=== PATIENT | female | born 1970 ===

== ENCOUNTER 2017-10-14 16:54 | Emergency (ER) | payer BC ==
--- NOTE | 2017-10-14 17:03 | ED PDOC ---
Arrival/HPI - General Time Seen by Provider: 10/14/17 17:00 Historian: Patient - History of Present Illness Narrative History of Present Illness (Text): 10/14/17 17:03 47 y/o female, no significant pmh, nkda, c/o burning urinary sensation with frequency x 1 week. Pt. stated that this feels like her usual UTI, no fever or chills, no pelvic or abdominal pain, no palpitation, no night sweat, no other medical or psychological complaints. Past Medical History - Provider Review Nursing Documentation Reviewed: Yes Family/Social History - Physician Review Nursing Documentation Reviewed: Yes Family/Social History: Unknown Family HX Allergies/Home Meds Allergies/Adverse Reactions: Allergies No Known Allergies Allergy (Verified 10/14/17 17:13) Review of Systems - Review of Systems Constitutional: absent: Fatigue, Fevers Eyes: absent: Vision Changes ENT: absent: Hearing Changes Respiratory: absent: SOB, Cough Cardiovascular: absent: Chest Pain Gastrointestinal: absent: Abdominal Pain, Nausea, Vomiting Genitourinary Female: Dysuria, Frequency. absent: Hematuria, Urine Output Changes, Vaginal Bleeding, Vaginal Discharge Skin: absent: Rash, Pruritis Neurological: absent: Headache Psychiatric: absent: Anxiety, Depression Physical Exam Vital Signs Reviewed: Yes Vital Signs Temp Pulse Resp BP Pulse Ox 10/14/17 17:20 98.2 F 79 18 132/71 99 Temperature: Afebrile Blood Pressure: Normal Pulse: Regular Respiratory Rate: Normal Appearance: Positive for: Well-Appearing, Non-Toxic, Comfortable Pain Distress: None Mental Status: Positive for: Alert and Oriented X 3 - Systems Exam Head: Present: Atraumatic, Normocephalic Pupils: Present: PERRL Extroacular Muscles: Present: EOMI Conjunctiva: Present: Normal Mouth: Present: Moist Mucous Membranes Neck: Present: Normal Range of Motion Respiratory/Chest: Present: Clear to Auscultation, Good Air Exchange. No: Respiratory Distress, Accessory Muscle Use Cardiovascular: Present: Regular Rate and Rhythm, Normal S1, S2. No: Murmurs Abdomen: No: Tenderness, Distention, Peritoneal Signs Back: Present: Normal Inspection Upper Extremity: Present: Normal Inspection. No: Cyanosis, Edema Lower Extremity: Present: Normal Inspection. No: Edema Neurological: Present: GCS=15, CN II-XII Intact, Speech Normal Skin: Present: Warm, Dry, Normal Color. No: Rashes Psychiatric: Present: Alert, Oriented x 3, Normal Insight, Normal Concentration Medical Decision Making ED Course and Treatment: 10/14/17 17:16 -urine hcg -UA -Observe and reassess 10/14/17 19:58 -Urine hcg is negative -UA show few bacteria and stated that this feels like a UTI she had before. -Pt. also concerning for gonorrhea/chlamydia and wants prophylatic treatment, rocephine and azithromycin ordered. Urine culture and gc/chlamydia ordered. -Discharge home with macrobid, pyridium, stay hydrated, follow up with your own pmd and obgyn/urologist within 2 days, return to the ER for any new or worsening signs or symptoms. - Lab Interpretations Lab Results: Lab Results 10/14/17 18:05: Urine Color Light yellow, Urine Appearance Clear, Urine pH 8.5, Ur Specific Webster 1.015, Urine Protein Trace H, Urine Glucose (UA) Negative, Urine Ketones Negative, Urine Blood Trace-intact H, Urine Nitrate Negative, Urine Bilirubin Negative, Urine Urobilinogen 1.0 H, Ur Leukocyte Esterase Negative, Urine RBC 0 - 2, Urine WBC 0 - 2, Ur Epithelial Cells 3 - 4, Urine Bacteria Few 10/14/17 17:38: Urine HCG, Qual Negative - PA / [employer] OPERATOR / Resident Statement /DO has reviewed & agrees with the documentation as recorded. Disposition/Present on Arrival - Present on Arrival Any Indicators Present on Arrival: No History of DVT/PE: No History of Uncontrolled Diabetes: No Urinary Catheter: No History of Decub. Ulcer: No - Disposition Have Diagnosis and Disposition been Completed?: Yes Diagnosis: Dysuria Disposition: HOME/ ROUTINE Disposition Time: 17:17 Patient Plan: Discharge Patient Problems: Current Active Problems Problem Status Onset UTI (urinary tract infection) Acute Condition: GOOD Additional Instructions: -Discharge home with macrobid, pyridium, stay hydrated, follow up with your own pmd and obgyn/urologist within 2 days, return to the ER for any new or worsening signs or symptoms. Prescriptions: Nitrofurantoin Macrocrystals [Macrobid] 100 mg PO BID #14 cap Phenazopyridine [Phenazopyridine HCl] 200 mg PO TID #6 tab Referrals: PCP,NO [Primary Care Provider] - Follow up with primary Blayne Turner MD [Staff Provider] - Follow up with primary Karley Dennison MD [Medical Doctor] - Follow up with primary Forms: WORK NOTE
[2017-10-14 17:14] VITALS: BMI 36.0
[2017-10-14 17:20] VITALS: RESP 18; O2SAT 99
[2017-10-14 18:23] LABS: PH,URINE 8.5 (4.7-8.0); URINE BILIRUBIN NEGATIVE (NEGATIVE); URINE BLOOD TRACE-INTACT (NEGATIVE); URINE GLUCOSE (UA) NEGATIVE (NEGATIVE); URINE LEUKOCYTE ESTERASE NEGATIVE Leu/uL (NEGATIVE); URINE PROTEIN TRACE mg/dL (<30 mg/dL)
[2017-10-14 18:25] LABS: URINE APPEARANCE CLEAR (CLEAR); URINE COLOR LIGHT YELLOW (YELLOW)
[2017-10-14 18:27] LABS: URINE BACTERIA FEW (NEG); URINE RBC 0 - 2 /hpf (0-2); URINE WBC 0 - 2 /hpf (0-6)
[2017-10-14] MEDS ORDERED: cefTRIAXone (Rocephin) 250 mg Inj IM STA (19:56)
[2017-10-14 20:22] VITALS: BP 130/76; PULSE 80; TEMP 98.1
== END 2017-10-14 20:21 | disposition home or self-care (01) ==
LOC: ED 16:54
DX: R30.0 Dysuria (principal)
CPT/HCPCS: 81001; 84703; 87086; 87491; 87591; 96372; 99283; J0696

== ENCOUNTER 2018-07-27 14:41 | Emergency (ER) | payer BC, OTHER ==
[2018-07-27 14:41] VITALS: BMI 36.0
[2018-07-27 15:05] VITALS: TEMP 98.1; O2SAT 98
--- NOTE | 2018-07-27 15:24 | ED PDOC ---
Arrival/HPI - General Chief Complaint: High Blood Pressure Time Seen by Provider: 07/27/18 14:45 Historian: Patient - History of Present Illness Narrative History of Present Illness (Text): 07/27/18 15:24 48 year old female, whose past medical history includes chronic migraines, presents to the emergency department complaining of lightheadedness, headache, and shortness of breath for the past 2 days. Patient states she has been intermittently feeling these symptoms and went to [facility] to get her blood pressure check, which she found to be 167/111. She denies fevers, chills, chest pain, dyspnea on exertion, cough, abdominal pain, nausea, vomiting, diarrhea, back pain, neck pain, or any other complaint. Time/Duration: < week Symptom Onset: Gradual Symptom Course: Intermittent Activities at Onset: Light Context: Home Past Medical History - Provider Review Nursing Documentation Reviewed: Yes - Infectious Disease Hx of Infectious Diseases: None - Cardiac Hx Cardiac Disorders: No - Pulmonary Hx Respiratory Disorders: No - Neurological Hx Neurological Disorder: Yes Hx Migraine: Yes - HEENT Hx HEENT Disorder: No - Renal Hx Renal Disorder: No - Endocrine/Metabolic Hx Endocrine Disorders: No - Hematological/Oncological Hx Blood Disorders: No - Integumentary Hx Dermatological Disorder: No - Musculoskeletal/Rheumatological Hx Musculoskeletal Disorders: No - Gastrointestinal Hx Gastrointestinal Disorders: No - Genitourinary/Gynecological Hx Genitourinary Disorders: No - Psychiatric Hx Psychophysiologic Disorder: No Hx Substance Use: No - Surgical History Hx Tubal Ligation: Yes - Anesthesia Hx Anesthesia: No Family/Social History - Physician Review Nursing Documentation Reviewed: Yes Family/Social History: No Known Family HX Smoking Status: Never Smoked Hx Alcohol Use: No Hx Substance Use: No Allergies/Home Meds Allergies/Adverse Reactions: Allergies No Known Allergies Allergy (Verified 07/27/18 14:59) Home Medications: Home Meds Medication Instructions Recorded Confirmed No Known Home Med 07/27/18 07/27/18 Review of Systems - Physician Review All systems were reviewed & negative as marked: Yes - Review of Systems Constitutional: absent: Fevers Cardiovascular: absent: Chest Pain Physical Exam - Physical Exam Narrative Physical Exam (Text): 07/27/18 15:28 Constitutional: No acute distress. Head: Normocephalic. Atraumatic. Eyes: PERRL. ENT: Moist mucous membranes. Neck: Supple. Cardiovascular: Regular rate. Chest: No tenderness. Respiratory: Clear to auscultation bilaterally. GI: Soft. Nontender. Nondistended. Back: No CVA tenderness. Musculoskeletal: No tenderness. mild pitting edema bilaterally. Skin: No rash. Neurologic: Alert, no focal deficit. Vital Signs Reviewed: Yes Vital Signs Temp Pulse Pulse Resp BP BP Pulse Ox 07/27/18 15:20 115 H 171/109 H 07/27/18 15:00 98.1 F 112 H 17 170/111 H 98 Temperature: Afebrile Blood Pressure: Hypertensive Pulse: Tachycardic Respiratory Rate: Normal Appearance: Positive for: Well-Appearing, Non-Toxic, Comfortable Pain Distress: None Mental Status: Positive for: Alert and Oriented X 3 Medical Decision Making ED Course and Treatment: 07/27/18 15:29 Impression: 48 year old female who presents to the emergency department complaining of lightheadedness, headache, and shortness of breath. Plan: -- Head CT -- EKG -- Labs -- Chest X-ray -- Urinalysis -- Reassess and disposition Prior Visits: Notes and results from previous visits were reviewed. Progress Notes: 07/27/18 15:55 EKG reviewed by me, shows: Sinus at 100bpm, with no ST/T wave changes. CXR no active disease. 07/27/18 17:25 Blood pressure decreased spontaneously without treatment. Patient states she feels better. Head CT no acute intracranial findings. Instructed to keep appointment with primary care that patient already has scheduled for Thursday. Instructed to return to emergency department for worsening headache, vomiting, chest pain, dyspnea, decreased UOP. - Lab Interpretations I have reviewed the lab results: Yes - RAD Interpretation Propagation Manager: Radiologist - Scribe Statement The provider has reviewed the documentation as recorded by the Ting Tovar Provider Scribe Attestation: All medical record entries made by the Ehibcathy were at my direction and personally dictated by me. I have reviewed the chart and agree that the record accurately reflects my personal performance of the history, physical exam, medical decision making, and the department course for this patient. I have also personally directed, reviewed, and agree with the discharge instructions and disposition. Disposition/Present on Arrival - Present on Arrival Any Indicators Present on Arrival: No History of DVT/PE: No History of Uncontrolled Diabetes: No Urinary Catheter: No History of Decub. Ulcer: No History Surgical Site Infection Following: None - Disposition Have Diagnosis and Disposition been Completed?: Yes Diagnosis: Hypertension Disposition: HOME/ ROUTINE Disposition Time: 17:20 Patient Plan: Discharge Patient Problems: Current Active Problems Problem Status Onset Hypertension Acute Condition: STABLE Discharge Instructions (ExitCare): High Blood Pressure (DC) Forms: [employer] (Welsh)
[2018-07-27 16:19] LABS: ALB/GLOB RATIO 1.2 (1.1-1.8); ALBUMIN 4.4 g/dL (3.0-4.8); ALT/SGPT 65 U/L (7-56); AST/SGOT 60 U/L (14-36); BLOOD UREA NITROGEN 14 mg/dL (7-21); CALCIUM 9.5 mg/dL (8.4-10.5); GFR NON-AFRICAN AMERICAN > 60
[2018-07-27 16:26] LABS: BASO # 0.05 K/mm3 (0.0-2.0); BASO % 0.5 % (0.0-3.0); EOS # 0.1 (0.0-0.7); EOS % 1.1 % (1.5-5.0); HEMOGLOBIN 13.3 g/dL (12.0-16.0); LYMPH # 2.4 (1.2-3.4); LYMPH % 24.9 % (22.0-35.0); MEAN CELL VOLUME 85.7 fl (80.0-105.0); MEAN CORPUSCULAR HGB CONC 32.7 g/dl (31.0-37.0); MEAN PLATELET VOLUME 9.1 fl (7.0-11.0); MONO # 0.3 (0.1-0.6); MONO % 2.8 % (1.0-6.0); RBC 4.75 10^6/uL (3.5-6.1); RED CELL DISTRIBUTION WIDTH 13.3 % (11.5-14.5); WHITE BLOOD COUNT 9.7 10^3/uL (4.5-11.0)
[2018-07-27 16:29] LABS: B-TYPE NATRIURETIC PEPTIDE 72.3 pg/mL (0-450); TROPONIN I < 0.01 ng/mL
--- NOTE | 2018-07-27 16:30 | CT ---
Date of service: 07/27/2018 PROCEDURE: CT HEAD WITHOUT CONTRAST. HISTORY: headache, HTN COMPARISON: None available. TECHNIQUE: Axial computed tomography images were obtained through the head/brain without intravenous contrast. Radiation dose: Total exam DLP = 806.51 mGy-cm. This CT exam was performed using one or more of the following dose reduction techniques: Automated exposure control, adjustment of the mA and/or kV according to patient size, and/or use of iterative reconstruction technique. FINDINGS: HEMORRHAGE: No intracranial hemorrhage. BRAIN: No mass effect or edema. No atrophy or chronic microvascular ischemic changes. VENTRICLES: Unremarkable. No hydrocephalus. CALVARIUM: Unremarkable. PARANASAL SINUSES: Unremarkable as visualized. No significant inflammatory changes. MASTOID AIR CELLS: Unremarkable as visualized. No inflammatory changes. OTHER FINDINGS: None. IMPRESSION: No acute intracranial findings
--- NOTE | 2018-07-27 16:31 | RAD ---
Date of service: 07/27/2018 HISTORY: HTN COMPARISON: No prior. TECHNIQUE: Chest PA and lateral FINDINGS: LUNGS: No active pulmonary disease. PLEURA: No significant pleural effusion identified. No pneumothorax apparent. CARDIOVASCULAR: No aortic atherosclerotic calcification present. Normal cardiac size. No pulmonary vascular congestion. OSSEOUS STRUCTURES: No significant abnormalities. VISUALIZED UPPER ABDOMEN: Normal. OTHER FINDINGS: None. IMPRESSION: No active disease.
[2018-07-27 16:55] LABS: URINE BILIRUBIN NEGATIVE (NEGATIVE); URINE BLOOD MODERATE (NEGATIVE); URINE GLUCOSE (UA) NEGATIVE (NEGATIVE); URINE LEUKOCYTE ESTERASE TRACE Leu/uL (NEGATIVE); URINE PROTEIN NEGATIVE mg/dL (<30 mg/dL); URINE UROBILINOGEN 0.2 E.U./dL (<1 E.U./dL)
[2018-07-27 16:57] LABS: URINE APPEARANCE SLIGHT-CLOUDY (CLEAR); URINE COLOR LIGHT YELLOW (YELLOW)
[2018-07-27 17:02] VITALS: RESP 16
[2018-07-27 17:13] LABS: URINE WBC 0 - 2 /hpf (0-6)
[2018-07-27 17:35] VITALS: BP 137/99; PULSE 96
--- NOTE | 2018-07-27 21:10 | CARD ---
APPROVED REPORT Date of service: 07/27/2018 EKG Measurement Heart [id number] <Conclusion> Sinus tachycardia Possible Left atrial enlargement Borderline ECG
== END 2018-07-27 17:42 | disposition home or self-care (01) ==
LOC: ED 14:41
DX: I10 Essential (primary) hypertension (principal)

== ENCOUNTER 2018-07-31 23:09 | Emergency (ER) | payer OTHER | END 2018-08-01 04:14 | disposition home or self-care (01) | LOC: ED 23:09 ==

== ENCOUNTER 2018-08-11 08:48 | Outpatient (CLI) | payer OTHER | END 2018-08-11 09:44 | disposition home or self-care (01) | LOC: LAB 08:48 ==

== ENCOUNTER 2018-08-11 10:15 | Outpatient (CLI) | payer OTHER | END 2018-08-11 10:16 | disposition home or self-care (01) | LOC: HLTHCOUN 10:16 ==

== ENCOUNTER 2018-08-16 05:51 | Outpatient (CLI) | payer OTHER | END 2018-08-16 05:52 | disposition home or self-care (01) | LOC: CARDIO 05:51 ==

== ENCOUNTER 2018-08-30 13:34 | Outpatient (CLI) | payer OTHER | END 2018-08-30 13:35 | disposition home or self-care (01) | LOC: LAB 13:34 ==

== ENCOUNTER 2018-09-08 07:10 | Outpatient (CLI) | payer OTHER | END 2018-09-08 07:11 | disposition home or self-care (01) | LOC: RAD 07:10 ==